=== PATIENT | female | born 1960 | race Caucasian/White ===

== ENCOUNTER 2024-12-03 16:37 | Inpatient (IN) | payer OTHER ==
[~2024-12-03] VITALS: Ht 180.3 cm; Wt 61.4 kg
--- NOTE | 2024-12-03 16:49 | Physician Documentation ---
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 Is seen at [facility]. Presents today due to have right lower quadrant abdominal pain wrapping around the back. She does also have urinary tract symptoms, reports that she has taken numerous rounds of antibiotics and it has not resolved her infection. Medication Reconciliation Allergies: Coded Allergies: No Known Allergies (Unverified , 12/03/24) Review of Systems ROS As stated above in the HPI, otherwise all systems are reviewed and negative. Physical Exam Physical Exam General: Alert, appears distressed due to pain. Guards right abd. Neck: Full range of motion. Respiratory: Lungs clear, no respiratory distress. Chest: No accessory muscle use. Cardiovascular: Regular rate and rhythm, no murmurs. Gastrointestinal: Soft,TTP right abd, nondistended. Bowels sounds present. Extremities: Normal range of motion, no deformity. Neurologic: Oriented x4. Psychiatric: Normal mood and affect. Skin: Normal color, warm and dry. No edema, no ecchymosis. Progress Progress Note Spoke with urologist who is aware of patient. Recommends controlling pain in his we are unable to control pain with pain medications to be reconsulted for possible stent placement. Medical Decision Making Findings Patient presented to the emergency room with flank pain. Workup consistent with kidney stone. That has 7 mm and very large. That has at the ureterovesicular junction but despite [place] Toradol and Dilaudid patient is still suffering from significant pain and I believe for pain that has intractable at this point. We will admit for pain control and neurologic consult. No evidence of kidney injury or urinary tract infection Differential Dx:Considerations: Include: AAA, Angina/ME, Aortic dissection, Appendicitis, Bowel obstruction, Cholangitis, Cholelithasis, Constipation, Diverticular disease, Esophageal rupture, Esophagitis, Gastritis/PUD, Gastroenteritis, GI hemorrhage, Hernia, Hepatitis, Inflammatory BD, Ischemic bowel, Ovarian cyst/torsion, Pancreatitis, PID, Porphyria, Trauma, intraabdominal, Urinary obstruction, Urinary tract infection, Urolithiasis Departure Admitted to Inpatient Unit: yes, to hospitalist Impression: Primary Impression: Intractable pain Additional Impression: Kidney stone Condition: Guarded Referrals: NO PRIMARY CARE PROVIDER (PCP) Signature Scribe Signature: x Attestation: The note accurately reflects work and decisions made by me.Larry Gonzalez MD 12/04/24 01:01 The note accurately reflects work and decisions made by me.Yin Torres NP 12/03/24 16:49 YIN YOUNG NP Dec 03, 2024 16:49 LARRY GONZALEZ MD Dec 04, 2024 01:01
[2024-12-03 17:28] LABS: MEAN PLATELET VOLUME 8.6 FL (7.4-10.4); RED CELL DISTRIBUTION WIDTH 13.2 % (11.5-14.5)
[2024-12-03 17:54] LABS: CREATININE 0.92 MG/DL (0.40-0.90); TOTAL CARBON DIOXIDE 30.7 MMOL/L (24-32); eCRCL 61 ML/MIN; eGFR 62 ML/MIN
[2024-12-03 20:26] LABS: LEUKOCYTE ESTERASE ,URINE NEGATIVE (Neg); NITRITES, URINE NEGATIVE (Neg); OCCULT BLOOD,URINE TRACE-INTACT (Neg)
[2024-12-03 20:43] LABS: UA COLLECTION TYPE CLN CATCH MIDSTREAM
[2024-12-03 20:45] LABS: SQUAMOUS EPITHELIAL CELL,UR FEW /LPF (FEW)
[2024-12-03] MEDS ORDERED: iohexol 300mg/ml 100ml inj. ONE (21:42)
[2024-12-03] MEDS: normal saline 1000ML IV soln IVB ONE (21:45)
[2024-12-03] MEDS: HYDROcodone/acetaminophen 5mg/325mg tablet PO ONE (21:59)
--- NOTE | 2024-12-03 22:50 | RADIOLOGY REPORT ---
Exam: CT CT ABDOMEN PELVIS W/ IV CONTRAST History: rlq pain COMPARISON: None Technique: Multidetector spiral CT of the abdomen and pelvis was performed from lung bases to pubic symphysis. Intravenous contrast was administered during this examination. Portal venous imaging was obtained. Axial, coronal and sagittal multiplanar reformats were performed by the technologist on a separate workstation. Radiation Dose : 1. Abdomen/Pelvis: CTDIvol 9 mGy, DLP 441 mGy*cm. CONTRAST: Type of contrast: Omnipaque 300 Contrast injected: 100 ml Findings: Lung Bases: No acute or significant lung base finding. Normal heart size. No pleural or pericardial effusion. Liver: The liver is normal in size. No focal lesions. Normal hepatic vascular enhancement. Gallbladder and Biliary Tree: Pneumobilia is seen. Status post cholecystectomy Spleen: Unremarkable Pancreas: The pancreas is normal in appearance without focal lesions or abnormal enhancement. Adrenal Glands: Unremarkable Kidneys: Moderate right-sided hydroureteronephrosis secondary to 7 mm obstructing stone in the right UVJ. Bladder: Unremarkable Bowel: The stomach is grossly normal in appearance. Small bowel and colon are normal in caliber and distribution. The appendix is not visualized; however, no secondary findings of acute appendicitis identified. Moderate to large colonic stool burden. Ascites: Absent Lymphadenopathy: No mesenteric, retroperitoneal or periportal lymphadenopathy. Abdominal Wall and Mesentery: Unremarkable. Vasculature: The visualized abdominal aorta is normal in size and caliber. Abdominal and pelvic vessels demonstrate normal enhancement. Pelvic Organs: Unremarkable Musculoskeletal: No aggressive focal bony lesions, acute fractures or dislocation. IMPRESSION: 1. Moderate right-sided hydroureteronephrosis secondary to 7 mm obstructing stone in the right UVJ. 2. Moderate to large colonic stool burden. 3. Status post cholecystectomy with pneumobilia, likely chronic Radiation optimization: All CT scans at this facility use at least one of these dose optimization techniques: automated exposure control mA and/or kV adjustment per patient size (includes targeted exams where dose is matched to clinical indication) or iterative reconstruction.
[2024-12-03] MEDS: ketorolac trometh 15mg/ml vial 15 MG/ML ML IV ONE (23:11)
[2024-12-03] MEDS: ondansetron/PF 4mg/2ml inj IV ONE (23:11)
[2024-12-04] VITALS (21 sets, daily range): BP systolic 92–125; BP diastolic 40–70; PULSE 56–103; RESP 12–18; TEMP 97.9–99; O2SAT 95–100
[2024-12-04] MEDS ORDERED: morphine 4 MG/ML inj SYRINge IV ONE
[2024-12-04] MEDS: HYDROmorphone inj. 0.5 MG/0.5 ML DISP.SYRIN IV ONE (00:12)
[2024-12-04] MEDS: ondansetron/PF 4mg/2ml inj IV ONE (00:14)
[2024-12-04] MEDS: fentaNYL/PF 50MCG/1 ML 2ML syringe IV ONE (01:52)
[2024-12-04] MEDS ORDERED: ondansetron/PF 4mg/2ml inj IV PRN ×2 (02:40→15:15)
[2024-12-04] MEDS ORDERED: potassium Cl 40MEQ/1/2NS 520ml 520 ML IV PRN (02:40)
[2024-12-04] MEDS ORDERED: mag hydrox/Alum hydrox/simeth 30ml oral suspension PO PRN (02:40)
[2024-12-04] MEDS ORDERED: magnesium Cl slow-release 64mg tablet PO PRN (02:40)
[2024-12-04] MEDS ORDERED: glucagon, human recombinant 1mg kit SUBCUT PRN (02:40)
[2024-12-04] MEDS ORDERED: DEXTROSE 15 GM of carb/4 tabs (each vial/BOTTLE has 4 tablets) PO PRN ×2 (02:40)
[2024-12-04] MEDS ORDERED: magnesium hydroxide 30ml (MOM) UD suspension PO PRN (02:40)
[2024-12-04] MEDS ORDERED: magnesium sulf-water 2g/50mL 50 ML IV PRN (02:40)
[2024-12-04] MEDS ORDERED: dextrose 50%-water 50ml dispensing syringe IV PRN ×2 (02:40)
[2024-12-04] MEDS ORDERED: potassium Cl 20 mEq SR tablet PO PRN ×2 (02:40)
[2024-12-04] MEDS ORDERED: magnesium sulf-water 4G/100mL 100 ML IV PRN (02:40)
--- NOTE | 2024-12-04 02:48 | HISTORY AND PHYSICAL-Residence ---
History & Physical Providers to CC Resident Creating Document: DARYN RUDD RES ~ History of Present Illness Primary Medical Doctor: ariella Reason for Admit\Complaint: Abdominal pain History of Present Illness This 64-year-old female with a past medical history of complete pancreatectomy, parathyroidectomy, hypertension, diabetes mellitus type 2 presented to the ER with a chief concern of right lower quadrant pain and flank pain. Mentioned that she was completely fine till noon and suddenly developed right lower quadrant pain and also right flank pain. Pain was stabbing type and had burning sensation. Took a Corona which did not help. Also had three episodes of vomiting which is some fluid. No blood in vomitus. Denies any diarrhea, chest pain, shortness of breaths, dizziness or syncope, palpitations, dysuria. Mentioned that she was recently diagnosed with UTI and had two failed oral antibiotics. She is now on Keflex 500 mg p.o. q.6h for a week (has 3-4 days monitor complete the course) and a dysuria resolved about two days back. Denies any blood in urine. Follows doctors at [facility]. Takes pancreatic enzymes. Has an insulin pump and CGM on right arm. Insulin pump was removed for CT scan here in the hospital. Denies having any kidney stones in the past. 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 Occasionally drinks alcohol. Denies abusing any other recreational drugs Sister had ovarian cancer, brother had bladder cancer, father of leukemia (unsure if ALL or AML) ROS ROS Constitutional: No fever, chills, dizziness, weakness, weight gain or loss Eyes: No pain, erythema, discharge, blurring of vision ENT: No sore throat, epistaxis, tinnitus Cardiovascular: No chest pain, chest pressure, chest discomfort, palpitations, syncope, lower extremity edema, paroxysmal nocturnal dyspnea Respiratory: No shortness of breath, cough, hemoptysis Gastrointestinal: Right lower abdominal pain, right flank pain, nausea and vomiting present. Normal appetite. No diarrhea, constipation, hematemesis, bloating, melena or fresh blood Genitourinary: No frequency, urgency, nocturia, hematuria or dysuria Musculoskeletal: No arthralgias or myalgias Integumentary: No change in skin, hair, nails. No swelling, bruising, abrasions Neurologic: No headache, neck pain, numbness or tingling of the extremities, weakness Psychiatric: No delusions, depression, loss of interest in normal activity or change in sleep pattern, hallucinations, suicidal ideations Endocrine: No fatigue, weakness, polydipsia, polyuria, change in appetite, heat or cold intolerance, sweating, dry skin Hematological: No bleeding, petechiae, bruising Allergies: No asthma or urticaria Exam Vitals: Vital Signs Date Time Temp Pulse Resp B/P (MAP) Pulse Ox O2 Delivery O2 Flow Rate FiO2 12/04/24 01:52 18 12/03/24 21:26 12/03/24 20:32 80 99 12/03/24 16:46 97.7 General: Alert and oriented x4 in mild distress due to pain HEENT: Normocephalic and atraumatic. Pupils equal round reactive to light and accommodation. Extraocular movements intact. Oral and nasal mucosa moist Neck: Trachea is in midline. No masses or JVD Chest: Bilateral normal breath sounds. No crackles, rhonchi or wheezes Cardiovascular: Regular rate and rhythm. S1-S2 normal. No rubs or murmurs Abdomen: Tenderness in the umbilical region and right lower quadrant region. Soft and nondistended. Normoactive bowel sounds. No bilateral costovertebral angle tenderness Extremities: No cyanosis, clubbing or edema Central Nervous System: No gross sensory or motor deficits CN II to XII grossly intact. No cerebellar signs Musculoskeletal: No spinal or paraspinal tenderness Skin: Warm and dry Diagnostic Data Last Recorded Lab Results: 12/04/2483712/04/24837 Advance Care Planning Advanced Care plannin - 30 Minutes Additional Plan Moderate right-sided hydroureteronephrosis secondary to 7 mm obstructing stone in right UVJ Intractable pain Received Corona 5/325 mg p.o. once, Toradol 15 mg IV once, morphine 4 mg IV once, Dilaudid 0.5 mg IV once, fentanyl 75 mcg IV once in the ER Also received Zofran 4 mg IV once and 1 L normal saline bolus in the ER Continue Zofran 4 mg IV q.6h p.r.n. for nausea/vomiting Continue normal saline at 100 cc/hour Continue Dilaudid 2 mg IV q.6h p.r.n. for severe pain and Dilaudid 1 mg IV q.6h p.r.n. for moderate pain Started Rocephin 1 g IV daily Started tamsulosin 0.4 mg p.o. daily Urinalysis showed trace ketones but no other signs of infection Lipase level normal NPO now Urologist - Dr. Villa consulted by ER provider and recommended NPO Diabetes mellitus type 2 HbA1c 6.8 Insulin pump removed for CT scan Glucose level-223 and CGM read as 275 Given one dose of regular 5 units IV once Started hyperglycemic/hypoglycemic protocol with Lantus 12 units and medium dose lispro protocol Hypertension Now, blood pressure 135/77 mmHg Continue home medication after med reconciliation Status post complete pancreatectomy S/p complete parathyroidectomy Calcium levels within normal Continue pancreatic enzymes along with the diet after med reconciliation NPO now for possible urological procedure tomorrow Benign lung nodules Mentioned that she has benign lung nodules which are being monitored outpatient DVT prophylaxis: Lovenox 40 mg subcutaneous daily Diet: NPO now. Start low-fat diet if no procedure planned or after procedure Daryn Rudd MD Internal Medicine Resident, PGY 3 Date of Service: Dec 04, 2024 Billing Provider: ERASMO AZUL MD Addendum Attestation I agree with the residents assessment and plan as below: 64 year old admitted with abdominal pain Plan: Urology consult rocephin mIVF tamsulosin CCT 55 min using HIPPA compliant A/V technology DARYN RUDD RES Dec 04, 2024 02:48 ERASMO AZUL MD Dec 04, 2024 16:37
[2024-12-04] MEDS: CefTRIAXone/D5W-Rocephin 1gm 50 ML IV SCH (03:33)
[2024-12-04] MEDS: metoclopramide 5 mg/ml inj IV ONE (03:33)
[2024-12-04] MEDS: normal saline 1000ml 1,000 ML IV SCH (03:48)
[2024-12-04 09:02] LABS: MEAN PLATELET VOLUME 8.9 FL (7.4-10.4); RED CELL DISTRIBUTION WIDTH 12.9 % (11.5-14.5)
[2024-12-04 09:20] LABS: CREATININE 1.11 MG/DL (0.40-0.90); TOTAL CARBON DIOXIDE 19.5 MMOL/L (24-32); eCRCL 50 ML/MIN; eGFR 50 ML/MIN
[2024-12-04] MEDS ORDERED: iohexol 300 MG/1 ML 50ml polymer ONE (09:56)
--- NOTE | 2024-12-04 10:21 | RADIOLOGY REPORT ---
CHEST RADIOGRAPH Indication: rule out aspiration Technique: Single frontal view of the chest was obtained Comparison: None FINDINGS: Lines and Tubes: None Lungs: No focal consolidation. Pleura: No effusion. No pneumothorax. Cardiomediastinal contours: Unremarkable Bones: No acute osseous abnormality. IMPRESSION: No acute cardiopulmonary disease.
[2024-12-04] MEDS: INSULIN LISPRO 100 UNIT/ML INSULN.PEN MULTI-DOSE SQ SCH (10:28)
--- NOTE | 2024-12-04 11:57 | ELECTROCARDIOGRAPH REPORT ---
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 Kiko Guzman Measurements Intervals [place] Rate: 91 P: 80 WA: 157 QRS: 34 QRSD: 91 T: 45 QT: 363 QTc: 447 Interpretive Statements Sinus rhythm Electronically Signed On 12-08-2024 7:08:[address] Kiko Guzman Please click the below link to view image of tracing.
--- NOTE | 2024-12-04 14:14 | CONSULTATION REPORT ---
History of Present Illness Providers to CC ~ Reason for Admit\Admit Dx: Right ureteral stone with hydronephrosis History of Present Illness 64-year-old white female diabetic presenting with right abdominal pain. CT images demonstrate a 6 mm right distal ureteral stone with associated proximal hydronephrosis. Serum studies demonstrate normal renal function and a normal white blood cell count. Emergency department staff claims the patient to be in intractable pain but upon my interaction with her she is quite comfortable and reports minimal to no pain. She has not seen a stone pass in her urine however. Allergies: Coded Allergies: No Known Allergies (Unverified , 12/03/24) Past Medical History Medical History Comment No genitourinary history. Past Surgical History Surgical History Comment No genitourinary surgeries. Past Family History Family History Comment Noncontributory. Past Social History Social History Comment Noncontributory. Denies substance abuse. Physical Exam Last Vital Signs Recorded: RN Vital Signs have been reviewed: Yes, Temperature: 97.9, Source: Oral, Heart Rate: 101, Respiratory Rate: 16, BP: 98/43, Pulse Oximetry: 96, Weight: 61.360 General Appearance: alert, no apparent distress EENT: PERRL/EOMI Neck: normal inspection Respiratory: no respiratory distress Chest: no accessory muscle use Cardiovascular: no edema Gastrointestinal: non-tender Rectal: deferred Extremities: normal range of motion, normal inspection Neurologic: oriented x4 Psychiatric: normal mood/affect Skin: normal color Lymphatic: no adenopathy Review of Systems ROS ROS Comments: Normal 12 system review. Results Diagram Lab Result Diagram: 12/04/24 0838 12/04/24 0838 Assessment/Plan Problems/Diagnosis: (1) Ureteral stone with hydronephrosis Assessment & Plan: I discussed the various management options for small ureteral stones with hydronephrosis. I described the risks and benefits associated with these options and ultimately the patient to move forward with ureteroscopic laser lithotripsy with retrograde pyelography and stent placement. The patient understands that she will need her stent removed in the next coming weeks following recovery from surgery. DEEPTI SILVA MD Dec 04, 2024 14:14
[2024-12-04] MEDS: K and/or MAG REPLACEMENT MC SCH (14:19)
[2024-12-04] MEDS ORDERED: fentaNYL/PF 50MCG/1 ML 2ML syringe ONE (14:33)
[2024-12-04] MEDS ORDERED: midazolam 1 mg/ML 2ml injection ONE (14:46)
[2024-12-04] MEDS ORDERED: propofol inj 20 ML IV ONE (14:47)
[2024-12-04] MEDS ORDERED: LIDOcaine 2% (20mg/ml) 5ml vial ONE (14:47)
[2024-12-04] MEDS ORDERED: dexamethasone sod phosphate 4mg/ml inj. ONE (14:47)
[2024-12-04] MEDS ORDERED: 0.9 % SODIUM CHLORIDE 10 ML VIAL ONE (14:48)
[2024-12-04] MEDS ORDERED: ePHEDrine 50MG/ML INJ. ONE (14:48)
[2024-12-04] MEDS ORDERED: ondansetron/PF 4mg/2ml inj ONE (14:48)
[2024-12-04] MEDS ORDERED: acetaminophen 1,000mg/100ml IV 100 ML IV PRN (15:15)
[2024-12-04] MEDS ORDERED: ringers solution, lacted 1,000 ML IV SCH (15:15)
[2024-12-04] MEDS ORDERED: labetalol 20mg/4ml (5mg/ml) syringe IV PRN (15:15)
[2024-12-04] MEDS ORDERED: morphine 4 MG/ML inj SYRINge IV PRN ×2 (15:15)
[2024-12-04] MEDS ORDERED: HYDROmorphone/PF 0.2 MG/ML SYRINGE IV PRN ×2 (15:15)
[2024-12-04] MEDS ORDERED: hydrALAZINE 20mg/ml inj. IV PRN (15:15)
--- NOTE | 2024-12-04 15:16 | OPERATIVE REPORT ---
Operative Report Providers to CC ~ Date of Procedure: Dec 04, 2024 Pre-Operative Diagnosis: Right hydronephrosis Post-Operative Diagnosis SAME as PRE-Op Procedure Performed One. Right retrograde pyelography. 2. Right ureteroscopic laser lithotripsy with basket fragment removal. 3. Right ureteral stent placement. 4. Fluoroscopy with interpretation less than 1 hour. Surgeon: Ricardo Silva MD Game Programer None. Anesthesiologist: Carmelina Fuller Type of Anesthesia: General Findings: Fluoroscopic findings: Right retrograde pyelography demonstrated a distal radio-opaque filling defect with moderate hydronephrosis of the ureter proximally. Final images demonstrate removal of this stone and coiling of the ureteral stent within the renal pelvis and bladder. Complications None. Estimated Blood Loss: None. Specimen Removed: Right ureteral stone Description of Procedure: The patient was under the effects of general anesthesia and in dorsal lithotomy with her genitals prepped and draped in sterile fashion. We entered the urethra with a 21 [place] scope and appreciated normal anatomy. The right orifice was cannulated for retrograde pyelography revealing the above-mentioned findings. A wire was then advanced into the upper tract and the scope was offloaded. Alongside this wire semi-rigid ureteroscopy identified a stone in the distal ure ter which was fragmented into multiple smaller pieces which were then removed with a basket and placed in the bladder. Over the previously placed wire we then advanced and deployed a ureteral stent and appreciated good coiling within the renal pelvis and bladder. Stone fragments were then evacuated from the bladder with our cystoscope sheath marking the end of the procedure. Counts repoted as correct: Yes X-Ray findings: No Foreign body RICARDO SILVA MD Dec 04, 2024 15:16
[2024-12-04] MEDS ORDERED: TAMS-55 PO (17:09)
[2024-12-04] MEDS ORDERED: CEFD300C3 PO (17:14)
[2024-12-04] MEDS ORDERED: enoxaparin 40mg/0.4ml syringe SQ SCH (20:00)
[2024-12-04] MEDS ORDERED: insulin glargine (Lantus) pen - multi-dose SQ SCH (21:00)
--- NOTE | 2024-12-04 22:17 | DISCHARGE SUMMARY-Residence ---
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 Consultants: Dr. Villa Complications: None Condition on DC: Stable New Medications: Cefdinir (Cefdinir) 300 Mg Capsule 1 CAP PO Q12H for 7 Days, #14 CAP 0 Refills Tamsulosin Hcl* (Flomax*) 0.4 Mg Cap.sr.24h 1 CAP PO DAILY for 30 Days, #30 CAP Discharge Summary: History of present illness by admitting physician Dr. Norman Barnes This 64-year-old female with a past medical history of complete pancreatectomy, parathyroidectomy, hypertension, diabetes mellitus type 2 presented to the ER with a chief concern of right lower quadrant pain and flank pain. Mentioned that she was completely fine till noon and suddenly developed right lower quadrant pain and also right flank pain. Pain was stabbing type and had burning sensation. Took a [place] which did not help. Also had three episodes of vomiting which is some fluid. No blood in vomitus. Denies any diarrhea, chest pain, shortness of breaths, dizziness or syncope, palpitations, dysuria. Mentioned that she was recently diagnosed with UTI and had two failed oral antibiotics. She is now on Keflex 500 mg p.o. q.6h for a week (has 3-4 days monitor complete the course) and a dysuria resolved about two days back. Denies any blood in urine. Follows doctors at [facility]. Takes pancreatic enzymes. Has an insulin pump and CGM on right arm. Insulin pump was removed for CT scan here in the hospital. Denies having any kidney stones in the past. 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 Urologist Dr. Villa was immediately consult and he planned ureteroscopic laser lithotripsy with retrograde pyelography and stent placement. He also recommended stent removed in the next coming weeks following recovery from surgery. Patient endorses improvement in her symptoms and she recovered sooner than expected, hence fit for discharge Physical examination General: Alert and oriented x4 in mild distress due to pain HEENT: Normocephalic and atraumatic. Pupils equal round reactive to light and accommodation. Extraocular movements intact. Oral and nasal mucosa moist Neck: Trachea is in midline. No masses or JVD Chest: Bilateral normal breath sounds. No crackles, rhonchi or wheezes Cardiovascular: Regular rate and rhythm. S1-S2 normal. No rubs or murmurs Abdomen: Mild Tenderness in the umbilical region and right lower quadrant region. Soft and nondistended. Normoactive bowel sounds. No bilateral costovertebral angle tenderness Extremities: No cyanosis, clubbing or edema Central Nervous System: No gross sensory or motor deficits CN II to XII grossly intact. No cerebellar signs Musculoskeletal: No spinal or paraspinal tenderness Skin: Warm and dry Vital Signs Date Time Temp Pulse Resp B/P (MAP) Pulse Ox O2 Delivery O2 Flow Rate FiO2 12/04/24 17:40 94 16 101/44 (63) 97 Room Air 12/04/24 17:10 98.0 12/04/24 16:40 0.0 Laboratory Tests Test 12/03/24 17:16 12/03/24 19:00 12/04/24 01:59 12/04/24 04:39 White Blood Count 5.3 X10'3 Red Blood Count 3.83 X10'6 Hemoglobin 12.4 g/dl Hematocrit 37.2 % Mean Corpuscular Volume 97.0 FL Mean Corpuscular Hemoglobin 32.3 PG Mean Corpuscular Hemoglobin Concent 33.3 g/dL Red Cell Distribution Width 13.2 % Platelet Count 240 X10'3 Mean Platelet Volume 8.6 FL Neutrophils (%) (Auto) 59.3 % Lymphocytes (%) (Auto) 31.6 % Monocytes (%) (Auto) 7.1 % Eosinophils (%) (Auto) 0.9 % Basophils (%) (Auto) 1.1 % Neutrophils # (Auto) 3.1 X10'3 Lymphocytes # (Auto) 1.7 X10'3 Monocytes # (Auto) 0.4 X10'3 Eosinophils # (Auto) 0.0 X10'3 Basophils # (Auto) 0.1 X10'3 CBC Comment Sodium Level 141 MMOL/L Potassium Level 4.4 MMOL/L 4.8 MMOL/L Chloride Level 103 MMOL/L Carbon Dioxide Level 30.7 MMOL/L Anion Gap 7 Blood Urea Nitrogen 13 MG/DL Creatinine 0.92 MG/DL Estimated GFR/1.73 m2 62 ML/MIN BUN/Creatinine Ratio 14.1 Glucose Level 115 MG/DL Hemoglobin A1c 6.8 % Calcium Level 9.1 MG/DL Total Bilirubin 0.6 MG/DL Aspartate Amino Transf (AST/SGOT) 29 U/L Alanine Aminotransferase (ALT/SGPT) 33 U/L Alkaline Phosphatase 99 IU/L Total Protein 7.1 G/DL Albumin 4.0 G/DL Globulin 3.1 G/DL Albumin/Globulin Ratio 1.3 Lipase 7 U/L Chemistry Comments Urine Specimen Description Cln catch midstream Urine Color Straw Urine Clarity Clear Urine pH 6.5 Urine Specific [place] <=1.005 Urine Protein Negative mg/dl Urine Glucose (UA) Negative mg/dl Urine Ketones Trace mg/dl Urine Occult Blood Trace-intact Urine Nitrite Negative Urine Bilirubin Negative Urine Urobilinogen 0.2 E.U/dL Urine Leukocyte Esterase Negative Urine RBC 0-2 /HPF Urine WBC 0-4 /HPF Urine Squamous Epithelial Cells Few /LPF Urine Bacteria None seen /HPF Urine Culture Indicated Not ind Volume Urine Centrifuged 10 ml Urine Comment Glucometer 223 mg/dl Lactic Acid Level 1.6 MMOL/L Test 12/04/24 08:01 12/04/24 08:38 12/04/24 12:18 Glucometer 351 mg/dl 414 mg/dl White Blood Count 11.1 X10'3 Red Blood Count 3.66 X10'6 Hemoglobin 11.7 g/dl Hematocrit 35.4 % Mean Corpuscular Volume 96.7 FL Mean Corpuscular Hemoglobin 31.9 PG Mean Corpuscular Hemoglobin Concent 33.0 g/dL Red Cell Distribution Width 12.9 % Platelet Count 220 X10'3 Mean Platelet Volume 8.9 FL Neutrophils (%) (Auto) 81.8 % Lymphocytes (%) (Auto) 11.1 % Monocytes (%) (Auto) 6.6 % Eosinophils (%) (Auto) 0 % Basophils (%) (Auto) 0.5 % Neutrophils # (Auto) 9.1 X10'3 Lymphocytes # (Auto) 1.2 X10'3 Monocytes # (Auto) 0.7 X10'3 Eosinophils # (Auto) 0.0 X10'3 Basophils # (Auto) 0.1 X10'3 CBC Comment Sodium Level 136 MMOL/L Potassium Level 4.9 MMOL/L Chloride Level 99 MMOL/L Carbon Dioxide Level 19.5 MMOL/L Anion Gap 18 Blood Urea Nitrogen 17 MG/DL Creatinine 1.11 MG/DL Estimated GFR/1.73 m2 50 ML/MIN BUN/Creatinine Ratio 15.3 Glucose Level 376 MG/DL Calcium Level 8.3 MG/DL Total Bilirubin 0.9 MG/DL Aspartate Amino Transf (AST/SGOT) 29 U/L Alanine Aminotransferase (ALT/SGPT) 27 U/L Alkaline Phosphatase 95 IU/L Total Protein 6.2 G/DL Albumin 3.3 G/DL Globulin 2.9 G/DL Albumin/Globulin Ratio 1.1 Chemistry Comments Imaging in hospital CT abdomen /pelvis: Moderate right-sided hydroureteronephrosis secondary to 7 mm obstructing stone in the right UVJ. Moderate to large colonic stool burden.Status post cholecystectomy with pneumobilia, likely chronic Chest x-ray:No acute cardiopulmonary disease. Discharge instructions: Follow up with the primary care physician at [facility] and urologist Dr. Villa in a week. Call Dr. Villa's office [phone] for a follow up appointment for stent removal. Avoid strenuous activity, drink plenty of fluids to help flush the urinary tract and prevent infection or blockage. Resume your regular diet. Continue antibiotics for a week. We have prescribed Flomax to help with micturition. Take them as prescribed. Return to the ER if you have any signs of urinary retention, hematuria, pain or fever. The stent is temporary, your urologist will inform you when it needs to be removed or replaced. New medications:New Medications: Cefdinir 300 Mg Capsule Tamsulosin Hcl* (Flomax*) 0.4 Mg Cap.sr.24h *Problems/Diagnosis: (1) Ureteral stone with hydronephrosis Total Time Spent on D/C: Up to 30 Minutes Date of Service: Dec 04, 2024 Billing Provider: NABEEL MONTENEGRO MD Common Visit Codes: 40922-JMU/OBS DISCH DAY >30min DONALD PACKER, RES Dec 04, 2024 22:16 NABEEL MONTENEGRO MD Dec 07, 2024 16:30
== END 2024-12-04 18:04 | disposition home or self-care (01) | DRG 661 ==
LOC: ER 16:38 → ED HOLD 12-04 01:22 → SUR 3N 12-04 04:30
PROVIDERS: ADMIT Internal Medicine; ATTEND Family Medicine
PROC: BW211ZZ Computerized Tomography (CT Scan) of Abdomen and Pelvis using Low Osmolar Contrast (ICD-10-PCS; 2024-12-03)
PROC: 0T768DZ Dilation of Right Ureter with Intraluminal Device, Via Natural or Artificial Opening Endoscopic (ICD-10-PCS; 2024-12-04)
PROC: 0TC68ZZ Extirpation of Matter from Right Ureter, Via Natural or Artificial Opening Endoscopic (ICD-10-PCS; 2024-12-04)
PROC: BT1D1ZZ Fluoroscopy of Right Kidney, Ureter and Bladder using Low Osmolar Contrast (ICD-10-PCS; principal; 2024-12-04 14:25)
DX: N13.2 Hydronephrosis with renal and ureteral calculous obstruction (principal); E11.9 Type 2 diabetes mellitus without complications; I10 Essential (primary) hypertension; R91.8 Other nonspecific abnormal finding of lung field
CPT/HCPCS: 96361; 96374; 96375; 99285; Z7506; 36415; 71045; 74177; 74420; 76000; 80053; 81001; 82948; 83036; 83605; 83690; 84132; 85025; 87040; 87081; 93005; A4618; A7000; C2617; G0378; J0690; J0696; J1100; J1171; J1885; J2003; J2250; J2405; J2704; J2765; J3010; J3490; J7030; Q9967